=== PATIENT | female | born 1960 | race Caucasian/White ===

== ENCOUNTER 2019-09-07 22:39 | Emergency (ER) | payer BC ==
--- NOTE | 2019-09-07 22:51 | EDM.PDOC ---
ED HPI GENERAL MEDICAL PROBLEM - General Stated Complaint: SOB Time Seen by Provider: 09/07/19 22:50 Source of Information: Reports: Patient History Limitations: Reports: No Limitations - History of Present Illness INITIAL COMMENTS - FREE TEXT/NARRATIVE: 59-year-old female who reports onset of nasal congestion and cough about 2 weeks ago. Her symptoms seemed to worsen through the week and she was seen virtually by Dr. Valdes and was placed on antibiotics and prednisone. She has been on these medications for the past week (7 days) and her symptoms have not improved through the week and today she began to have some more problems breathing, particularly with walking and then tonight at 9 PM her breathing became acutely much worse and prompted her to come to the emergency department. She has had no chest pain. She has had no palpitations. She has had no neck pain , back pain or arm pain. She has never had problems with breathing in the past. She states she has basically been in her home and isolated mid June 2019. No known contacts with COVID 19 patient. She has had no fevers or chills. No ear pain. No sore throat. She has been drinking well but has not had much of an appetite the past day. No nausea or vomiting. She has no pain at present. She would rate her pain as a 0/10. There are no other associated signs or symptoms. There are no other modifying factors. Onset: Other (2 weeks getting worse today) Duration: Getting Worse Location: Reports: Other Quality: Reports: Other (Rapid will) Severity: Severe Improves with: Reports: None Worsens with: Reports: Movement Associated Symptoms: Reports: Cough, Diaphoresis, Shortness of Breath Treatments MEDICAL RECORDS MANAGER: Reports: Other (see below) (As above) - Related Data Allergies Allergy/AdvReac Type Severity Reaction Status Date / Time No Known Allergies Allergy Verified 09/07/19 22:50 Past Medical History - Past Health History Medical/Surgical History: Denies Medical/Surgical History - Past Surgical History Female Surgical History: Reports: Section Social & Family History - Tobacco Use Smoking Status *Q: Never Smoker - Alcohol Use Alcohol Use History: No - Living Situation & Occupation Living situation: Reports: Social History Comment: No known exposure to anyone with coronavirus 19 and no travel. She reports she has been primarily in her house since June 2019. ED ROS GENERAL - Review of Systems Review Of Systems: See Below Constitutional: Reports: Diaphoresis. Denies: Fever, Chills HEENT: Reports: Other (Nasal congestion). Denies: Eye Discharge Respiratory: Reports: Shortness of Breath, Cough, Sputum (Green phlegm) Cardiovascular: Reports: Dyspnea on Exertion. Denies: Chest Pain, Lightheadedness Endocrine: Reports: No Symptoms GI/Abdominal: Reports: No Symptoms : Reports: No Symptoms Musculoskeletal: Reports: Other (Swelling in both ankles and feet since she began the prednisone one week ago.) Skin: Reports: Diaphoresis Neurological: Reports: No Symptoms Hematologic/Lymphatic: Reports: No Symptoms Immunologic: Reports: No Symptoms ED EXAM, GENERAL - Physical Exam Exam: See Below Exam Limited By: No Limitations General Appearance: Alert, Moderate Distress (Respiratory distress. She is unable to speak in plate sentences.), Obese Eye Exam: Bilateral Eye: EOMI, Normal Inspection, Other (Sclera are anicteric) Ears: Normal External Exam, Hearing Grossly Normal Ear Exam: Bilateral Ear: Auricle Normal Nose: No Blood, Nasal Drainage Throat/Mouth: Normal Oropharynx, Normal Voice, No Airway Compromise Head: Atraumatic, Normocephalic Neck: Normal Inspection, Supple, Non-Tender, Full Range of Motion Respiratory/Chest: Respiratory Distress, Decreased Breath Sounds, Crackles ( Bilaterally and diffusely), Wheezing (Some scattered wheezing), Accessory Muscle Use Cardiovascular: No Gallop, Tachycardia Peripheral Pulses: 2+: Radial (L), Radial (R), Dorsalis Pedis (L), Dorsalis Pedis (R) GI/Abdominal: Normal Bowel Sounds, Soft, Non-Tender, No Mass Back Exam: Normal Inspection, Full Range of Motion Extremities: Normal Range of Motion, Non-Tender, Normal Capillary Refill, Pedal Edema Neurological: Alert, Oriented, CN II-XII Intact, Normal Cognition, No Motor/ Sensory Deficits Psychiatric: Normal Affect, Normal Mood Skin Exam: Intact, Normal Color, Cool (Cool peripherally), Diaphoretic EKG INTERPRETATION EKG Date: 09/07/19 Time: 23:21 Rhythm: Other (Sinus tachycardia) Rate (Beats/Min): 104 [place]: Normal P-Wave: Present QRS: Normal ST-T: Elevated (2, 3, aVF and V6) QT: Normal EKG Interpretation Comments: Patient with ST segment elevation in 2, 3, aVF and V6 consistent with an acute STEMI with inferoposterolateral [place] Course - Orders/Labs/Meds Orders: Active Orders 24 hr Category Date Time Status EKG Documentation Completion [RC] ASDIRECTED Care 09/07/19 23:06 Active Oxygen Therapy Adult [Oxygen Therapy, ED] [RC] Care 09/07/19 23:10 Active ASDIRECTED RT Post Treatment Assessment [RC] Click to Edit Care 09/07/19 23:09 Inactive Chest 1V Frontal [CR] Stat Exams 09/07/19 23:05 Taken C-REACTIVE PROTEIN [CHEM] Stat Lab 09/07/19 23:35 Received CORONAVIRUS COVID-19, TREVOR Stat Lab 09/07/19 23:07 Ordered INPATIENT Stat Lab 09/07/19 23:07 Ordered PRO B-TYPE NATRIUR PEPT,BNPPRO [CHEM] Stat Lab 09/07/19 23:35 Received TROPONIN I [CHEM] Stat Lab 09/07/19 23:35 Received Sodium Chloride 0.9% [Saline Flush] Med 09/07/19 23:05 Active 10 ml FLUSH ASDIRECTED PRN Peripheral IV Insertion Adult [OM.PC] Routine Oth 09/07/19 23:05 Ordered EKG 12 Lead [EK] Routine Ther 09/07/19 23:05 Ordered Medication Orders Sodium Chloride (Saline Flush) 10 ml FLUSH ASDIRECTED PRN PRN Reason: Keep Vein Open Labs: Laboratory Tests 09/07/19 09/07/19 09/07/19 Range/Units 22:43 23:35 23:35 WBC 18.5 H (4.5-12.0) X10-3/uL RBC 4.11 (3.23-5.20) x10(6)uL Hgb 11.6 (11.5-15.5) g/dL Hct 35.9 (30.0-51.3) % MCV 87.2 (80-96) fL MCH 28.2 (27.7-33.6) pg MCHC 32.3 (32.2-35.4) g/dL RDW 13.3 (11.5-15.5) % Plt Count 179 (125-369) X10(3)uL MPV 7.4 (7.4-10.4) fL Add Manual Diff Yes Neutrophils % (Manual) 80 (46-82) % Band Neutrophils % 1 (0-6) % Lymphocytes % (Manual) 12 L (13-37) % Monocytes % (Manual) 6 (4-12) % Eosinophils % (Manual) 1 (0-5) % POC VBG pH 7.39 (7.31-7.41) POC VBG pCO2 40.2 L (41-51) mmHG POC VBG HCO3 24.5 (23-28) mmol/L POC VBG Total CO2 26 (24-29) mmol/L POC VBG Base Excess 0 (-2-3) mmol/L Sodium 133 L (135-145) mmol/L Potassium 4.1 (3.5-5.3) mmol/L Chloride 94 L (100-110) mmol/L Carbon Dioxide 25 (21-32) mmol/L BUN 12 (7-18) mg/dL Creatinine 1.1 H (0.55-1.02) mg/dL Est Cr Clr Drug Dosing TNP Estimated GFR (MDRD) 50 L (>60) BUN/Creatinine Ratio 10.9 (9-20) Glucose 602 H* (80-116) mg/dL Calcium 8.3 L (8.6-10.2) mg/dL Total Bilirubin 0.4 (0.1-1.3) mg/dL AST 20 (5-25) IU/L ALT 23 (12-36) U/L Alkaline Phosphatase 121 H (56-112) IU/L Total Protein 6.9 (6.0-8.0) g/dL Albumin 2.4 L (3.2-4.6) g/dL Globulin 4.5 g/dL Albumin/Globulin Ratio 0.5 Meds: Medications Generic Name Dose Route Start Last Admin Trade Name Freq PRN Reason Stop Dose Admin Sodium Chloride 10 ml 09/07/19 23:05 Saline Flush FLUSH ASDIRECTED PRN Keep Vein Open Discontinued Medications Generic Name Dose Route Start Last Admin Trade Name Freq PRN Reason Stop Dose Admin Albuterol 4 gm 09/07/19 23:08 Ventolin Hfa INH 09/07/19 23:09 ONETIME ONE Aspirin 324 mg 09/07/19 23:26 09/07/19 23:25 Aspirin PO 09/07/19 23:27 324 mg ONETIME ONE Administration Heparin Sodium (Porcine) 4,000 units 09/07/19 23:40 09/07/19 23:43 Heparin Sodium IVPUSH 09/07/19 23:41 4,000 units ONETIME ONE Administration Methylprednisolone Sodium Succinate 125 mg 09/07/19 23:08 Solu-Medrol IVPUSH 09/07/19 23:09 ONETIME ONE Ticagrelor 180 mg 09/07/19 23:26 09/07/19 23:33 Brilinta PO 09/07/19 23:27 180 mg ONETIME ONE Administration - Radiology Interpretation Free Text/Narrative:: Portable chest x-ray shows decompensated CHF/pulmonary edema. - Re-Assessments/Exams Free Text/Narrative Re-Assessment/Exam: 09/07/19 23:40: Patient had EKG performed at 11:21 PM and this showed an acute STEMI pattern. The patient has told me previously that if she were to need transfer she would want to go to [facility] in [place]. I called and discussed the patient's case with Dr. Cheney, curing pickling packer at [facility] in [place], and he has agreed to accept the patient in transfer to go directly to the cardiac catheter lab upon arrival there. [facility] has been called for transport. The patient has been given aspirin 324 mg by mouth, Brilinta 180 mg by mouth and heparin 4000 units IV. This was all that was recommended by Dr. Cheney at this time other than to transport the patient as rapidly as possible for cardiac intervention. The patient is in agreement with plans for transfer. Most of her labs are pending at the time of transfer but her blood sugar was 613 and her white blood cell count was 18.5 with a normal H&H. Departure - Departure Time of Disposition: 23:55 Disposition: DC/Tfer to Acute Hospital 02 Condition: Critical Clinical Impression: Acute inferoposterior myocardial infarction, Elevated blood sugar Acute ST elevation myocardial infarction (STEMI) Qualifiers: Involved coronary artery: unspecified coronary artery Qualified Code(s): I21.3 - ST elevation (STEMI) myocardial infarction of unspecified site Respiratory failure with hypoxia Qualifiers: Chronicity: acute Qualified Code(s): J96.01 - Acute respiratory failure with hypoxia - Discharge Information Referrals: PCP,None [Primary Care Provider] - Critical Care Note - Critical Care Note Total Time (mins): 45 Comments: Total critical care time spent with the patient was 45 minutes as the patient was attended immediately after I was informed of the patient's O2 saturation was in the 84% range.. Sepsis Event Note - Focused Exam Date Exam was Performed: 09/08/19 Time Exam was Performed: 00:04 - My Orders Last 24 Hours: My Active Orders 09/07/19 23:05 Chest 1V Frontal [CR] Stat Sodium Chloride 0.9% [Saline Flush] 10 ml FLUSH ASDIRECTED PRN Peripheral IV Insertion Adult [OM.PC] Routine EKG 12 Lead [EK] Routine 09/07/19 23:06 EKG Documentation Completion [RC] ASDIRECTED 09/07/19 23:07 CORONAVIRUS COVID-19, TREVOR Stat INPATIENT Stat 09/07/19 23:09 RT Post Treatment Assessment [RC] Click to Edit 09/07/19 23:10 Oxygen Therapy Adult [Oxygen Therapy, ED] [RC] ASDIRECTED 09/07/19 23:35 C-REACTIVE PROTEIN [CHEM] Stat PRO B-TYPE NATRIUR PEPT,BNPPRO [CHEM] Stat TROPONIN I [CHEM] Stat - Assessment/Plan Last 24 Hours: My Active Orders 09/07/19 23:05 Chest 1V Frontal [CR] Stat Sodium Chloride 0.9% [Saline Flush] 10 ml FLUSH ASDIRECTED PRN Peripheral IV Insertion Adult [OM.PC] Routine EKG 12 Lead [EK] Routine 09/07/19 23:06 EKG Documentation Completion [RC] ASDIRECTED 09/07/19 23:07 CORONAVIRUS COVID-19, TREVOR Stat INPATIENT Stat 09/07/19 23:09 RT Post Treatment Assessment [RC] Click to Edit 09/07/19 23:10 Oxygen Therapy Adult [Oxygen Therapy, ED] [RC] ASDIRECTED 09/07/19 23:35 C-REACTIVE PROTEIN [CHEM] Stat PRO B-TYPE NATRIUR PEPT,BNPPRO [CHEM] Stat TROPONIN I [CHEM] Stat
[2019-09-07] MEDS ORDERED: Sodium Chloride 0.9% 10 ML Syringe FLUSH PRN (23:05)
[2019-09-07] MEDS ORDERED: Albuterol 8 GM Inhaler INH ONE (23:08)
[2019-09-07] MEDS ORDERED: methylPREDNISolone Sodium Succinate 125 MG/2 ML SDV IVPUSH ONE (23:08)
[2019-09-07] MEDS ORDERED: Ticagrelor 90 MG Tab PO ONE (23:26)
[2019-09-07] MEDS ORDERED: Aspirin 81 MG Tab.Chew PO ONE (23:26)
[2019-09-07] MEDS ORDERED: Heparin Sodium 5,000 Units/ML Vial IVPUSH ONE (23:40)
== END 2019-09-07 23:51 ==
LOC: FB.ED 22:39
DX: J96.01 Acute respiratory failure with hypoxia (principal); I21.11 ST elevation (STEMI) myocardial infarction involving right coronary artery; R73.9 Hyperglycemia, unspecified
CPT/HCPCS: 36415; 71045; 80053; 82803; 83880; 84484; 85025; 85610; 85730; 86140; 93005; 96374; 99285; A9270; J1644